=== PATIENT | male | born 1940 | race Caucasian/White ===

== ENCOUNTER 2019-03-22 13:01 | Emergency (ER) | payer MEDICARE, OTHER ==
--- NOTE | 2019-03-22 13:56 | EDM.PDOC ---
ED HPI GENERAL MEDICAL PROBLEM - General Chief Complaint: Headache Stated Complaint: [facility] Time Seen by Provider: 03/22/19 13:35 Source of Information: Reports: Patient, Other (RN) History Limitations: Reports: Physical Impairment (pt has CP) - History of Present Illness INITIAL COMMENTS - FREE TEXT/NARRATIVE: 70-year-old male with his nurse for evaluation and treatment of a headache. Patient is from [place]. They are traveling here with a travel group. Patient has history of cerebral palsy and travels with the nurse who has taken care of him for the last 10 years. There's reports about a month ago he was complaining of a headache. Presented to his primary care provider's office and was told it was a hair follicle. Do not have any imaging done. Patient reports that headaches are gradually started in his left ear and travels to the left parietal and temporal lobes. He currently rates the pain as a 4 or 5 out of 10. He states that it was excruciating earlier and at its worse it was a 12 out of 10. He's tried hot pack and ibuprofen which has helped. He states he does not normally get headaches. He denies any fevers, chills, nausea , vomiting, cough, chest pain, abdominal pain, shortness of breath, dizziness or any vision changes. Pat is scheduled appointment with a neurologist on March 27. He is currently on gabapentin has chronic tingling in his feet and hands. Patient has a history of prostate cancer. Was previously treated with Lupron. Left Ear Pain Score (Numeric/FACES): 2 - Related Data Allergies Allergy/AdvReac Type Severity Reaction Status Date / Time adhesive tape Allergy Cannot Verified 03/22/19 13:06 Remember Home Meds: Home Meds Albuterol Sulfate [Proair Hfa] 2 inh INH DAILY 03/22/19 [History] Ascorbic Acid [Vitamin C] 1 tab PO DAILY 03/22/19 [History] Bisacodyl [Correctol] 5 mg PO DAILY PRN 03/22/19 [History] Budesonide/Formoterol [Symbicort 80-4.5 MCG] 2 inh INH DAILY 03/22/19 [History] Ca Carbonate/Vitamin D3/Vit K [Calcium + D Soft Chewable Tab] 1 tab PO DAILY 03/05 [History] Cetirizine [ZyrTEC] 10 mg PO DAILY PRN 03/22/19 [History] Famotidine 10 mg PO DAILY PRN 03/22/19 [History] Furosemide [Lasix] 20 mg PO DAILY 03/22/19 [History] Gabapentin [Neurontin] 300 mg PO TID 03/22/19 [History] Leuprolide Acetate [Lupron Depot] 22.5 mg IM ASDIRECTED 03/22/19 [History] Meloxicam 15 mg PO ASDIRECTED 03/22/19 [History] Multivit-Min/FA/Lycopen/Lutein [Centrum Silver Men Tablet] 1 tab PO DAILY [History] Omeprazole 20 mg PO DAILY 03/22/19 [History] amLODIPine/Valsartan [Amlodipine-Valsartan 10-160 mg] 1 tab PO DAILY 03/22/19 [ History] Past Medical History Respiratory History: Reports: COPD Gastrointestinal History: Reports: GERD Neurological History: Reports: Cerebral Palsy Oncologic (Cancer) History: Reports: Prostate - Past Surgical History Neurological Surgical History: Reports: Spinal Fusion Social & Family History - Tobacco Use Smoking Status *Q: Never Smoker - Caffeine Use Caffeine Use: Reports: Coffee - Recreational Drug Use Recreational Drug Use: No ED ROS GENERAL - Review of Systems Review Of Systems: See Below Constitutional: Denies: Fever, Chills HEENT: Reports: Ear Pain (Left ear). Denies: Vertigo Respiratory: Denies: Shortness of Breath, Cough Cardiovascular: Denies: Chest Pain GI/Abdominal: Denies: Abdominal Pain, Nausea, Vomiting Musculoskeletal: Reports: Neck Pain Neurological: Reports: Headache, Numbness (hands And feet, chronic), Tingling ( Hands and feet, chronic), Difficulty Walking (She has a history of cerebral palsy) - Physical Exam Exam: See Below Exam Limited By: No Limitations General Appearance: Alert, WD/WN, No Apparent Distress Eye Exam: Bilateral Eye: Normal Inspection, PERRL Ears: Normal External Exam, Normal Canal, Hearing Grossly Normal, Normal TMs ( Scarring to the bilateral tympanic membranes, small amount of fluid present behind the left TM. No obvious infections) Nose: Normal Inspection Throat/Mouth: Normal Inspection, Normal Lips, Normal Oropharynx, Normal Voice, No Airway Compromise Head Exam: Atraumatic, Normocephalic Neck: Other (Chronic torcholis from CP) Respiratory/Chest: No Respiratory Distress, Lungs Clear, Normal Breath Sounds Cardiovascular: Normal Peripheral Pulses, Regular Rate, Rhythm, No Murmur Neuro Exam (Abbreviated): Alert, Oriented, Normal Cognition Psychiatric: Normal Affect, Normal Mood Skin Exam: Warm, Dry, Normal Color Course - Vital Signs Last Recorded V/S: Last Vital Signs Temp 97.9 F 03/22/19 17:37 Pulse 86 03/22/19 17:37 Resp 16 03/22/19 17:37 BP 126/83 03/22/19 17:37 Pulse Ox 95 03/22/19 17:37 - Orders/Labs/Meds Labs: Laboratory Tests 03/22/19 03/22/19 03/22/19 Range/Units 14:10 14:30 14:30 WBC 6.93 (4.23-9.07) K/mm3 RBC 4.50 L (4.63-6.08) M/mm3 Hgb 13.2 L (13.7-17.5) gm/L Hct 40.5 (40.1-51.0) % MCV 90.0 (79.0-92.2) fl MCH 29.3 (25.7-32.2) pg MCHC 32.6 (32.2-35.5) g/dl RDW Std Deviation 47.4 H (35.1-43.9) fL Plt Count 251 (163-337) K/mm3 MPV 11.0 (9.4-12.3) fl Neut % (Auto) 65.5 (34.0-67.9) % Lymph % (Auto) 20.9 L (21.8-53.1) % [place] % (Auto) 8.9 (5.3-12.2) % Eos % (Auto) 4.2 (0.8-7.0) Baso % (Auto) 0.4 (0.1-1.2) % Neut # (Auto) 4.53 (1.78-5.38) K/mm3 Lymph # (Auto) 1.45 (1.32-3.57) K/mm3 [place] # (Auto) 0.62 (0.30-0.82) K/mm3 Eos # (Auto) 0.29 (0.04-0.54) K/mm3 Baso # (Auto) 0.03 (0.01-0.08) K/mm3 Sodium 138 (136-145) mEq/L Potassium 3.8 (3.5-5.1) mEq/L Chloride 103 (98-107) mEq/L Carbon Dioxide 23 (21-32) mEq/L Anion Gap 15.8 H (5-15) BUN 23 H (7-18) mg/dL Creatinine 1.0 (0.7-1.3) mg/dL Est Cr Clr Drug Dosing 56.92 mL/min Estimated GFR (MDRD) > 60 (>60) mL/min BUN/Creatinine Ratio 23.0 H (14-18) Glucose 91 (83-115) mg/dL Calcium 9.0 (8.5-10.1) mg/dL Total Bilirubin 0.8 (0.2-1.0) mg/dL AST 20 (15-37) U/L ALT 11 L (16-63) U/L Alkaline Phosphatase 56 (46-116) U/L C-Reactive Protein < 0.2 (<1.0) mg/dL Total Protein 7.3 (6.4-8.2) g/dl Albumin 4.3 (3.4-5.0) g/dl Globulin 3.0 gm/dL Albumin/Globulin Ratio 1.4 (1-2) Urine Color Yellow (Yellow) Urine Appearance Clear (Clear) Urine pH 5.5 (5.0-8.0) Ur Specific [place] 1.020 (1.005-1.030) Urine Protein Negative (Negative) Urine Glucose (UA) Negative (Negative) Urine Ketones Negative (Negative) Urine Occult Blood 2+ H (Negative) Urine Nitrite Negative (Negative) Urine Bilirubin Negative (Negative) Urine Urobilinogen 0.2 (0.2-1.0) Ur Leukocyte Esterase Negative (Negative) Urine RBC 5-10 H (0-5) /hpf Urine WBC Not seen (0-5) /hpf Ur Squamous Epith Cells 0-5 (0-5) /hpf Urine Bacteria Rare (FEW) /hpf Urine Mucus Few (FEW) /hpf - Radiology Interpretation Free Text/Narrative:: Head CT Technique: Multiple axial sections through the brain were obtained. Intravenous contrast was not utilized. Comparison: No prior intracranial imaging. Findings: Ventricles along with basal cisterns and sulci over the convexities are mildly prominent. No abnormal parenchymal densities are seen. No evidence of intracranial hemorrhage. No midline shift or mass effect is seen. Bone window settings were reviewed which show the visualized sinuses to appear clear. No acute calvarial abnormality is seen. Impression: 1. Mild senescent change as noted above. 2. No acute intracranial abnormality is appreciated on noncontrast head CT exam. - Re-Assessments/Exams Free Text/Narrative Re-Assessment/Exam: 03/22/19 17:10 I reviewed the labs and imaging with the patient. He is slightly dehydrated likely from traveling and not to gets much fluids as he should. This is likely contributing to his headache. I do not see any obvious ear infection no need for antibiotics. I did see a small amount of fluid and encouraged him to take his Zyrtec daily. The headache is more likely tension associated. He does have an appointment with neurology when he returns on [place] and I encouraged him to keep a headache journal and follow-up with his neurologist regarding his headaches. He has declined any pain medication while in the ER for the headache. He also declined the IV fluids but has eaten and drank well here. We will discharge him home. Discharge instructions as documented. Departure - Departure Time of Disposition: 17:10 Disposition: Home, Self-Care 01 Condition: Good Clinical Impression: Tension-type headache - Discharge Information *PRESCRIPTION DRUG MONITORING PROGRAM REVIEWED*: No *COPY OF PRESCRIPTION DRUG MONITORING REPORT IN PATIENT JIMBO: No Instructions: Tension Headache, Adult, [id number] Referrals: PCP,Not In Area [Primary Care Provider] - Forms: ED Department Discharge Additional Instructions: make sure you are drinking plenty of fluids. Take [id number] Tylenol or Motrin as needed for pain relief. Recommend using zytrec daily. Follow-up with your neurologist when you return home as planned. Recommend keeping a headache journal to try and identify any triggers. common Triggers include red food dyes, MSG and alcohol. recommend using ice or heat to the neck and head for additional pain relief as this does sound more musculoskeletal causing the headache. Please return to the ER should symptoms change or worsen.
--- NOTE | 2019-03-22 14:39 | CT ---
Head CT Technique: Multiple axial sections through the brain were obtained. Intravenous contrast was not utilized. Comparison: No prior intracranial imaging. Findings: Ventricles along with basal cisterns and sulci over the convexities are mildly prominent. No abnormal parenchymal densities are seen. No evidence of intracranial hemorrhage. No midline shift or mass effect is seen. Bone window settings were reviewed which show the visualized sinuses to appear clear. No acute calvarial abnormality is seen. Impression: 1. Mild senescent change as noted above. 2. No acute intracranial abnormality is appreciated on noncontrast head CT exam. Diagnostic code #2
== END 2019-03-22 17:41 | disposition home or self-care (01) ==
LOC: JD.ED 13:01
DX: G44.209 Tension-type headache, unspecified, not intractable (principal); J44.9 Chronic obstructive pulmonary disease, unspecified; K21.9 Gastro-esophageal reflux disease without esophagitis; Z79.899 Other long term (current) drug therapy
CPT/HCPCS: 36415; 70450; 70450-26; 80053; 81001; 85025; 86140; 99284-25